=== PATIENT | female | born 1930 | race Caucasian/White ===

== ENCOUNTER 2019-03-04 17:34 | Inpatient (IN) | payer MEDICARE ==
[~2019-03-04] VITALS: Ht 167.6 cm; Wt 63.6 kg
--- NOTE | 2019-03-04 17:35 | NUR ---
level 1 stroke and upon my arrival pt was in hallway in front of room 3. Pt is alert, very anxious, speech is slow but fluent. Daughter is at bedside and provided details. Pt was known to be well at 3PM as she spoke to her daughter
--- NOTE | 2019-03-04 17:40 | NUR ---
TO CT WITH PATIENT AT THIS TIME, STROKE RN LASHELL AT BEDSIDE SPEAKING WITH FAMILY, MILLIE CALVILLO AT BEDSIDE.
--- NOTE | 2019-03-04 17:50 | NUR ---
PATIENT BACK FROM CT AT THIS TIME. Addendum: 03/04/19 at 1750 by MELISSA CANDICE LOBO AT BEDSIDE.
[2019-03-04 17:54] LABS: BASOPHILS # (AUTO) 0.1 X10'3 (0-0.2); BASOPHILS % (AUTO) 0.7 % (0-1); EOSINOPHILS # (AUTO) 0.2 X10'3 (0-0.9); EOSINOPHILS % (AUTO) 1.7 % (0-6); HEMATOCRIT 42.1 % (35.0-45.0); LYMPHOCYTES # (AUTO) 1.4 X10'3 (1.1-4.8); LYMPHOCYTES % (AUTO) 14.7 % (21-51); MEAN CORPUSCULAR HEMOGLOBIN 30.7 PG (27.0-31.0); MEAN CORPUSCULAR HGB CONC 33.4 g/dL (33.0-36.5); MEAN CORPUSCULAR VOLUME 91.9 FL (78-98); MEAN PLATELET VOLUME 8.7 FL (7.4-10.4); MONOCYTES # (AUTO) 0.9 X10'3 (0-0.9); MONOCYTES % (AUTO) 9.3 % (2-12); NEUTROPHILS # (AUTO) 7.1 X10'3 (1.8-7.7); NEUTROPHILS % (AUTO) 73.6 % (42-75); PLATELET COUNT 200 X10'3 (140-440); RED BLOOD COUNT 4.58 X10'6 (4.20-5.60); RED CELL DISTRIBUTION WIDTH 14.5 % (11.5-14.5); WHITE BLOOD COUNT 9.6 X10'3 (4.5-11.0)
--- NOTE | 2019-03-04 17:56 | NUR ---
TELE NEURO HAS BEEN INITIATED
[2019-03-04 18:05] LABS: PARTIAL THROMBOPLASTIN TIME 27 SECONDS (22-32)
[2019-03-04 18:08] LABS: ALANINE AMINOTRANSFERASE 23 U/L (12-78); ALBUMIN 3.5 G/DL (3.4-5.0); ALBUMIN/GLOBULIN RATIO 1.1 (1.1-1.5); ALKALINE PHOSPHATASE 76 IU/L (46-116); ANION GAP 11 (8-16); ASPARTATE AMINO TRANSFERASE 16 U/L (10-37); BILIRUBIN,TOTAL 0.3 MG/DL (0.1-1.0); BLOOD UREA NITROGEN 16 MG/DL (7-18); CALCIUM 9.4 MG/DL (8.5-10.1); CHLORIDE 104 MMOL/L (99-107); CREATININE 0.94 MG/DL (0.40-0.90); GLUCOSE 109 MG/DL (70-104); POTASSIUM 4.3 MMOL/L (3.5-5.1); SODIUM 137 MMOL/L (135-145); TOTAL CARBON DIOXIDE 22.2 MMOL/L (24-32); TOTAL PROTEIN 6.6 G/DL (6.4-8.2); eGFR 56 ML/MIN
[2019-03-04 18:10] LABS: TROPONIN I < 0.04 NG/ML (0.0-0.05)
[2019-03-04] MEDS ORDERED: iohexol 350MG/ML 100ml bottle IV ONE (18:45)
[2019-03-04] MEDS ORDERED: aspirin 81mg tab.chew PO ONE (19:45)
[2019-03-04] MEDS ORDERED: LEVO88TA2 PO (20:10)
--- NOTE | 2019-03-04 20:17 | NUR ---
Daughter Faith Potterjanette phone #:[phone]
--- NOTE | 2019-03-04 20:27 | NUR ---
continued note. Pt spoke again to her daughter by phone at 4pm and daughter noted "something wrong." Pt's daughter proceeded to pts house where she found her speaking "gibberish" and having difficulty with balance. Daughter then brought pt to the ED Currently she continues to have bouts of aphasia, at times has difficulty following direction. Pt delined TPA. POC discussed with pt and pts daughter Faith.
--- NOTE | 2019-03-04 20:30 | NUR ---
PT EXHIBITING SOME EXPRESSIVE AND RECEPTIVE DIFFICULTIES AT THIS TIME. WHEN ASKED TO COVER LEFT EYE WITH LEFT HAND PT JUST LOOKED AT BOTH HANDS FOR SEVERAL SECONDS AND WAS UNABLE TO DETERMINE LEFT FROM RIGHT OR WHAT SHE WAS BEING REQUESTED TO DO. SHE REMAINS SLOW WITH SYMPTOMS THAT COME AND GO.
--- NOTE | 2019-03-04 20:55 | NUR ---
UNABLE TO COMPLETE STROKE CHECKLIST OF Q15 MIN VITALS DUE TO NO VITALS BEING INPUTED PRIOR TO PT BEING PLACED INTO BED 3.
--- NOTE | 2019-03-04 20:57 | NUR ---
Report to bellows charger assemblerYudith and bedside rnWesly.
--- NOTE | 2019-03-04 20:59 | NUR ---
PER STROKE NURSE, REPORT GIVEN TO NEURO UNIT LINE SERVICE ATTENDANT AND BEDSIDE RN WELL.
[2019-03-04] MEDS ORDERED: magnesium hydroxide 30ml (MOM) UD suspension PO PRN (22:30)
[2019-03-04] MEDS ORDERED: acetaminophen 325mg tablet PO PRN (22:30)
[2019-03-04] MEDS ORDERED: ondansetron/PF 4mg/2ml inj IV PRN (22:30)
[2019-03-04] MEDS ORDERED: mag hydrox/Alum hydrox/simeth 30ml oral suspension PO PRN (22:30)
[2019-03-04] MEDS ORDERED: ESTR1PAT95 TD (22:50)
[2019-03-04 23:15] VITALS: BP 121/62
[2019-03-05] VITALS (8 sets, daily range): BP systolic 104–170; BP diastolic 37–75
[2019-03-05 05:49] LABS: CLARITY,URINE SLIGHTLY CLOUDY (Clear); COLOR,URINE YELLOW (Yellow); GLUCOSE, URINE NEGATIVE (Neg); KETONES,URINE TRACE mg/dl (Neg); LEUKOCYTE ESTERASE ,URINE NEGATIVE (Neg); NITRITES, URINE NEGATIVE (Neg); OCCULT BLOOD,URINE NEGATIVE (Neg); PH,URINE 7.5 (4.8-8.0); PROTEIN,URINE NEGATIVE (Neg); UROBILINOGEN,URINE 0.2 E.U/dL (0.2-1.0)
[2019-03-05 05:56] LABS: UA COLLECTION TYPE STRAIGHT CATH
[2019-03-05 05:57] LABS: BACTERIA,URINE 1+ /HPF (Neg); RBC,URINE 0-2 /HPF (0-2); SQUAMOUS EPITHELIAL CELL,UR MANY /LPF (FEW); WBC,URINE 0-4 /HPF (0-4)
--- NOTE | 2019-03-05 06:15 | NUR ---
Patient in room ORTHO 4009. I have received report from BERTHA MUELLER and had the opportunity to ask questions and assume patient care.
[2019-03-05 06:16] LABS: CHOL/HDL RATIO 2.4 (0.00-4.99); CHOLESTEROL 147 MG/DL (0-200); HDL CHOLESTEROL 61 MG/DL (35-60); LDL CHOLESTEROL 80 MG/DL (50-100); TRIGLYCERIDES 44 MG/DL (20-135)
--- NOTE | 2019-03-05 06:30 | NUR ---
Problems reprioritized. Patient report given, questions answered & plan of care reviewed with ERVIN SHAFER.
[2019-03-05] MEDS: heparin, porcine 5000 units/ml vial SQ SCH ×2 (07:44→20:00)
[2019-03-05] MEDS: aspirin 325mg tablet PO SCH (07:44)
[2019-03-05] MEDS ORDERED: CefTRIAXone/D5W-Rocephin 1gm 50 ML IV SCH (08:00)
[2019-03-05] MEDS: lactobacillus rhamnosus 10,000 MMU CELLS/CAPSULE PO SCH ×2 (10:24→20:00)
--- NOTE | 2019-03-05 17:12 | NUR ---
HOLLIS 4518 RE: SNEHAL [id number] MRA IS NORMAL. PATIENT IS BEEN SHAKING AND VERY WARM BUT NO TEMP.
--- NOTE | 2019-03-05 18:00 | NUR ---
Problems reprioritized. Patient report given, questions answered & plan of care reviewed with GEORGINA MUELLER.
--- NOTE | 2019-03-05 18:19 | NUR ---
Student documentation: I have reviewed and agree with all interventions, assessments performed and documented by RICHIE HOLT.
[2019-03-05] MEDS ORDERED: vancomycin/NS 1 GM ADD-VANTAGE 250 ML IV ONE (18:20)
--- NOTE | 2019-03-05 18:20 | NUR ---
Student Medication Administration: For this medication-pass time frame, all medication were reviewed, dispensed, administered and documented per hospital policy by CHIRAG HOLT.
--- NOTE | 2019-03-05 18:47 | NUR ---
called daughter Faith to inform patient may have lumbar puncture this evening and will need consent. daughter will come to hospital.
[2019-03-05] MEDS ORDERED: acetaminophen 650mg rectal suppository RC PRN (19:45)
--- NOTE | 2019-03-05 19:45 | NUR ---
Dr. Blanton gave me a verbal order to give 2 tylenol suppositories for 103.2 axillary temperature.
[2019-03-05] MEDS ORDERED: acetaminophen 650mg rectal suppository RC ONE (19:50)
[2019-03-05] MEDS ORDERED: vancomycin/NS 1 GM ADD-VANTAGE 250 ML IV SCH (20:00)
--- NOTE | 2019-03-05 20:27 | NUR ---
Dr. Blanton did a lumbar puncture on patient in the Er in bed #16, the pt's daughter gave consent for procedure. He was able to do lumbar puncture with one puncture. Patient tolerated procedure well.
[2019-03-05] MEDS: acyclovir inj 750 MG in normal saline 250ml IV soln 235 ML IV SCH (20:38)
[2019-03-05] MEDS: normal saline 1000ml 1,000 ML IV SCH (20:38)
[2019-03-05 20:39] LABS: CSF SUPERNATANT COLOR COLORLESS
[2019-03-05 20:40] LABS: APPEARANCE,CSF CLEAR; BODY FLUID PH (NON-PLEURAL) 7.5; CSF VOLUME 9 ML; TUBE# COUNTED 3
[2019-03-05 21:00] LABS: TOTAL PROTEIN,CSF 121 MG/DL (30-60)
[2019-03-05 21:08] LABS: CSF RBC 40 /CU MM (0); LYMPHOCYTES,CSF 65 % (40-80); MONOCYTES,CSF 23 % (15-45); NEUTRO,CSF 12 % (0-6)
[2019-03-05 21:10] LABS: CSF WBC CT 380 /CU MM (0-5)
--- NOTE | 2019-03-05 21:16 | NUR ---
notified Dr. Roth of WBC in CSF count. also of patient's continued temperature of 102.3 axillary. req to keep on the tylenol q6 for temperature. no new orders
[2019-03-06 02:26] VITALS: BP 116/71
[2019-03-06] MEDS: acyclovir inj 750 MG in normal saline 250ml IV soln 235 ML IV SCH (03:05)
[2019-03-06 06:00] VITALS: BP 115/67
--- NOTE | 2019-03-06 06:32 | NUR ---
reported to days. noted pt much more alert this am. able to use full sentences.
--- NOTE | 2019-03-06 07:08 | NUR ---
Patient in room ORTHO 4011. I have received report from Ashanti MUELLER and had the opportunity to ask questions and assume patient care.
[2019-03-06 09:19] LABS: BASOPHILS % (AUTO) 0.6 % (0-1); EOSINOPHILS # (AUTO) 0.1 X10'3 (0-0.9); EOSINOPHILS % (AUTO) 1.6 % (0-6); HEMATOCRIT 42.4 % (35.0-45.0); HEMOGLOBIN 14.3 g/dl (12.0-16.0); LYMPHOCYTES # (AUTO) 1.4 X10'3 (1.1-4.8); LYMPHOCYTES % (AUTO) 17.8 % (21-51); MEAN CORPUSCULAR HEMOGLOBIN 31.2 PG (27.0-31.0); MEAN CORPUSCULAR HGB CONC 33.6 g/dL (33.0-36.5); MEAN CORPUSCULAR VOLUME 92.8 FL (78-98); MEAN PLATELET VOLUME 9.4 FL (7.4-10.4); MONOCYTES # (AUTO) 1.3 X10'3 (0-0.9); MONOCYTES % (AUTO) 16.4 % (2-12); NEUTROPHILS % (AUTO) 63.6 % (42-75); PLATELET COUNT 168 X10'3 (140-440); RED BLOOD COUNT 4.56 X10'6 (4.20-5.60); WHITE BLOOD COUNT 7.9 X10'3 (4.5-11.0)
[2019-03-06 09:23] LABS: ALANINE AMINOTRANSFERASE 21 U/L (12-78); ALBUMIN 3.2 G/DL (3.4-5.0); ALKALINE PHOSPHATASE 67 IU/L (46-116); ANION GAP 14 (8-16); ASPARTATE AMINO TRANSFERASE 27 U/L (10-37); BILIRUBIN,TOTAL 0.6 MG/DL (0.1-1.0); BLOOD UREA NITROGEN 13 MG/DL (7-18); CALCIUM 8.9 MG/DL (8.5-10.1); CHLORIDE 106 MMOL/L (99-107); CREATININE 0.93 MG/DL (0.40-0.90); GLUCOSE 80 MG/DL (70-104); POTASSIUM 3.8 MMOL/L (3.5-5.1); SODIUM 140 MMOL/L (135-145); TOTAL CARBON DIOXIDE 20.1 MMOL/L (24-32); TOTAL PROTEIN 6.5 G/DL (6.4-8.2); eGFR 57 ML/MIN
[2019-03-06 10:00] VITALS: BP 114/53
[2019-03-06] MEDS: lactobacillus rhamnosus 10,000 MMU CELLS/CAPSULE PO SCH ×2 (10:10→19:27)
[2019-03-06] MEDS: aspirin 325mg tablet PO SCH (10:10)
[2019-03-06] MEDS: levoTHYROXINE 88mcg tablet PO SCH (10:10)
[2019-03-06] MEDS: heparin, porcine 5000 units/ml vial SQ SCH ×2 (10:11→19:28)
[2019-03-06] MEDS: normal saline 1000ml 1,000 ML IV SCH ×2 (10:58→13:01)
[2019-03-06 11:04] LABS: TOTAL CELLS COUNTED 100
[2019-03-06 11:05] LABS: BURR CELLS 1+; PLATELET ESTIMATE NORMAL
[2019-03-06] MEDS: acetaminophen 325mg tablet PO PRN ×2 (12:58→22:11)
--- NOTE | 2019-03-06 18:18 | NUR ---
Problems reprioritized. Patient report given, questions answered & plan of care reviewed with Kely Conteh Rn.
[2019-03-06 20:00] VITALS: BP 135/73
[2019-03-07] VITALS: BP 121/88
--- NOTE | 2019-03-07 03:56 | NUR ---
reviewed and agree with SRN assessment.
[2019-03-07 05:13] LABS: RPR Non Reactive (Non Reactive)
[2019-03-07] MEDS: normal saline 1000ml 1,000 ML IV SCH (05:20)
[2019-03-07 06:00] VITALS: BP 117/63
--- NOTE | 2019-03-07 06:17 | NUR ---
Problems reprioritized. Patient report given, questions answered & plan of care reviewed with ERVIN Crow.
[2019-03-07 06:27] LABS: BASOPHILS # (AUTO) 0.1 X10'3 (0-0.2); BASOPHILS % (AUTO) 1.1 % (0-1); EOSINOPHILS # (AUTO) 0.4 X10'3 (0-0.9); EOSINOPHILS % (AUTO) 6.4 % (0-6); HEMATOCRIT 37.6 % (35.0-45.0); HEMOGLOBIN 12.9 g/dl (12.0-16.0); LYMPHOCYTES # (AUTO) 1.3 X10'3 (1.1-4.8); LYMPHOCYTES % (AUTO) 20.8 % (21-51); MEAN CORPUSCULAR HEMOGLOBIN 31.5 PG (27.0-31.0); MEAN CORPUSCULAR HGB CONC 34.4 g/dL (33.0-36.5); MEAN CORPUSCULAR VOLUME 91.7 FL (78-98); MEAN PLATELET VOLUME 8.8 FL (7.4-10.4); MONOCYTES # (AUTO) 0.7 X10'3 (0-0.9); MONOCYTES % (AUTO) 11.9 % (2-12); NEUTROPHILS # (AUTO) 3.6 X10'3 (1.8-7.7); NEUTROPHILS % (AUTO) 59.8 % (42-75); PLATELET COUNT 170 X10'3 (140-440); RED BLOOD COUNT 4.09 X10'6 (4.20-5.60); RED CELL DISTRIBUTION WIDTH 14.4 % (11.5-14.5); WHITE BLOOD COUNT 6.1 X10'3 (4.5-11.0)
[2019-03-07 06:31] LABS: ALANINE AMINOTRANSFERASE 20 U/L (12-78); ALBUMIN 2.6 G/DL (3.4-5.0); ALBUMIN/GLOBULIN RATIO 0.9 (1.1-1.5); ALKALINE PHOSPHATASE 51 IU/L (46-116); ANION GAP 8 (8-16); ASPARTATE AMINO TRANSFERASE 17 U/L (10-37); BILIRUBIN,TOTAL 0.4 MG/DL (0.1-1.0); BLOOD UREA NITROGEN 12 MG/DL (7-18); BUN/CREATININE RATIO 15.2 (6.6-38.0); CALCIUM 8.3 MG/DL (8.5-10.1); CHLORIDE 107 MMOL/L (99-107); CREATININE 0.79 MG/DL (0.40-0.90); GLUCOSE 96 MG/DL (70-104); POTASSIUM 3.7 MMOL/L (3.5-5.1); SODIUM 140 MMOL/L (135-145); TOTAL CARBON DIOXIDE 24.9 MMOL/L (24-32); TOTAL PROTEIN 5.6 G/DL (6.4-8.2); eGFR 69 ML/MIN
--- NOTE | 2019-03-07 06:51 | NUR ---
Patient in room ORTHO 4011. I have received report from Kely MUELLER and had the opportunity to ask questions and assume patient care.
[2019-03-07] MEDS: aspirin 325mg tablet PO SCH (08:17)
[2019-03-07] MEDS: levoTHYROXINE 88mcg tablet PO SCH (08:17)
[2019-03-07] MEDS: lactobacillus rhamnosus 10,000 MMU CELLS/CAPSULE PO SCH ×2 (08:17→20:20)
[2019-03-07] MEDS: acetaminophen 325mg tablet PO PRN ×2 (08:17→22:23)
[2019-03-07] MEDS: heparin, porcine 5000 units/ml vial SQ SCH (08:19)
[2019-03-07 10:00] VITALS: BP 114/50
--- NOTE | 2019-03-07 10:55 | NUR ---
Paged case management to come talk to patients family about discharge options
--- NOTE | 2019-03-07 11:42 | NUR ---
Problems reprioritized. Patient report given, questions answered & plan of care reviewed with Monet MUELLER.
[2019-03-07 18:00] VITALS: BP 136/64
--- NOTE | 2019-03-07 19:00 | NUR ---
Patient in room ORTHO 4011. I have received report from Tristin MUELLER and had the opportunity to ask questions and assume patient care.
--- NOTE | 2019-03-07 19:28 | NUR ---
Patient's daughter is expressing concern regarding her mom's discharge to home at this time. Per the daughter she is going to be responsible for the patient and she herself had recent back surgery and has a 10# weight limit for lifting and also has restrictions on rotation. I informed her that I would inform the day charge nurse about the issues and they would page the DCP Saturday regarding this and see what options they had. Sometimes rehab will accept patients that are able to walk good with minimal assistance with certain circumstances at home with caregivers, living situations. Also gave this information to the patient's son at bedside.
[2019-03-07] MEDS: apixaban 2.5mg tablet PO SCH (20:19)
[2019-03-07 22:00] VITALS: BP 128/66
[2019-03-08 06:00] VITALS: BP 120/60
--- NOTE | 2019-03-08 06:10 | NUR ---
Patient in room ORTHO 4011. I have received report from and had the opportunity to ask questions and assume patient care ERVIN Yap.
[2019-03-08 08:00] VITALS: BP 121/57
[2019-03-08] MEDS: lactobacillus rhamnosus 10,000 MMU CELLS/CAPSULE PO SCH (08:39)
[2019-03-08] MEDS: levoTHYROXINE 88mcg tablet PO SCH (08:39)
[2019-03-08] MEDS: apixaban 2.5mg tablet PO SCH (08:39)
[2019-03-08 09:20] LABS: ALANINE AMINOTRANSFERASE 22 U/L (12-78); ALBUMIN 2.7 G/DL (3.4-5.0); ALBUMIN/GLOBULIN RATIO 0.8 (1.1-1.5); ALKALINE PHOSPHATASE 51 IU/L (46-116); ANION GAP 5 (8-16); ASPARTATE AMINO TRANSFERASE 17 U/L (10-37); BILIRUBIN,TOTAL 0.4 MG/DL (0.1-1.0); BLOOD UREA NITROGEN 12 MG/DL (7-18); BUN/CREATININE RATIO 15.4 (6.6-38.0); CALCIUM 8.5 MG/DL (8.5-10.1); CHLORIDE 111 MMOL/L (99-107); CREATININE 0.78 MG/DL (0.40-0.90); GLUCOSE 90 MG/DL (70-104); POTASSIUM 4.3 MMOL/L (3.5-5.1); SODIUM 144 MMOL/L (135-145); TOTAL CARBON DIOXIDE 27.8 MMOL/L (24-32); TOTAL PROTEIN 5.9 G/DL (6.4-8.2); eGFR 70 ML/MIN
[2019-03-08] MEDS ORDERED: APIX2.5T PO (11:38)
--- NOTE | 2019-03-08 12:16 | NUR ---
DISCHARGE: Pt A/O. VSS, RR even unlabored. No s/s stroke noted. Viral menengitis, ASA for intermittent EISENBERG. Eliquis Rx called into pt pharmacy/[facility]. All necessary DC documents signed, copies released to pt. pt/and family member will make appt to follow up w/. Pt escorted JOSE ANTONIO by [facility] staff. Pt ambulated using walder for balance. pt will have family for supervision, SBA as needed. pt transferred safely into personal vehicle home. Pt thanked [facility] staff for her care.
[2019-03-08] MEDS ORDERED: VANCOMYCIN LEVEL IV ONE (19:30)
[2019-03-09 13:29] LABS: CSF WEST NILE VIRUS, IGG Negative (Negative); CSF WEST NILE VIRUS, IGM Negative (Negative)
[2019-03-10 11:11] LABS: HSV 1 PCR Negative (Negative); HSV 2 PCR Negative (Negative)
[2019-03-10 13:40] LABS: LYME IGG P23 AB Absent (.); LYME IGG P28 AB Absent (.); LYME IGG P30 AB Absent (.); LYME IGG P41 AB Absent (.); LYME IGG P45 AB Absent (.); LYME IGG P58 AB Absent (.); LYME IGG P66 AB Absent (.); LYME IGG P93 AB Absent (.); LYME IGG WB INTERP Negative (.); LYME IGM P23 AB Absent (.); LYME IGM P39 AB Absent (.); LYME IGM P41 AB Absent (.); LYME IGM WB INTERP Negative (.)
== END 2019-03-08 12:03 | disposition home health service (06) | DRG 75 ==
LOC: ER 17:35 → ED HOLD 23:03 → CMPBEDREQ 23:59 → ORTHO 4S 03-05 00:01
PROVIDERS: ADMIT Internal Medicine; ATTEND Family Medicine
PROC: B3251ZZ Computerized Tomography (CT Scan) of Bilateral Common Carotid Arteries using Low Osmolar Contrast (ICD-10-PCS; 2019-03-04)
PROC: B32G1ZZ Computerized Tomography (CT Scan) of Bilateral Vertebral Arteries using Low Osmolar Contrast (ICD-10-PCS; 2019-03-04)
PROC: B3281ZZ Computerized Tomography (CT Scan) of Bilateral Internal Carotid Arteries using Low Osmolar Contrast (ICD-10-PCS; 2019-03-04)
PROC: 009U3ZZ Drainage of Spinal Canal, Percutaneous Approach (ICD-10-PCS; principal; 2019-03-05)
DX: A87.9 Viral meningitis, unspecified (principal); G93.41 Metabolic encephalopathy; I48.0 Paroxysmal atrial fibrillation; E03.9 Hypothyroidism, unspecified; Z60.2 Problems related to living alone; Z66 Do not resuscitate; Z79.890 Hormone replacement therapy; Z87.891 Personal history of nicotine dependence; Z90.710 Acquired absence of both cervix and uterus
CPT/HCPCS: 36415; 70450; 70496; 70498; 70544; 70551; 71045; 72131; 80053; 80061; 81001; 82948; 83605; 83986; 84145; 84157; 84439; 84443; 84484; 85025; 85610; 85730; 86592; 86617; 86788; 86789; 87015; 87040; 87070; 87075; 87081; 87102; 87529; 89051; 92508; 92616; 93005; 93306; 97110; 97116; 97162; 97530; 99291; G0378; J0133; J0696; J1644; J3370; J7030; J7050; Q9967

== ENCOUNTER 2019-07-20 16:26 | Emergency (ER) | payer MEDICARE ==
[~2019-07-20] VITALS: Ht 170.2 cm; Wt 59.2 kg
[~2019-07-20 16:26] MED LIST: APIX2.5T PO; ESTR1PAT95 TD; LEVO88TA2 PO
--- NOTE | 2019-07-20 18:10 | NUR ---
To x-ray via w/c for imaging. Pt assisted to change into a gown and given warm blankets prior to x-ray.
[2019-07-20 18:44] LABS: BASOPHILS # (AUTO) 0.1 X10'3 (0-0.2); BASOPHILS % (AUTO) 0.7 % (0-1); EOSINOPHILS # (AUTO) 0.2 X10'3 (0-0.9); EOSINOPHILS % (AUTO) 2.4 % (0-6); HEMATOCRIT 45.4 % (35.0-45.0); HEMOGLOBIN 15.1 g/dl (12.0-16.0); LYMPHOCYTES % (AUTO) 25.4 % (21-51); MEAN CORPUSCULAR HEMOGLOBIN 30.6 PG (27.0-31.0); MEAN CORPUSCULAR HGB CONC 33.2 g/dL (33.0-36.5); MEAN CORPUSCULAR VOLUME 92.2 FL (78-98); MEAN PLATELET VOLUME 8.9 FL (7.4-10.4); MONOCYTES # (AUTO) 0.7 X10'3 (0-0.9); MONOCYTES % (AUTO) 9.2 % (2-12); NEUTROPHILS % (AUTO) 62.3 % (42-75); PLATELET COUNT 239 X10'3 (140-440); RED BLOOD COUNT 4.93 X10'6 (4.20-5.60); RED CELL DISTRIBUTION WIDTH 13.9 % (11.5-14.5)
[2019-07-20 18:58] LABS: ALANINE AMINOTRANSFERASE 24 U/L (12-78); ALBUMIN/GLOBULIN RATIO 1.3 (1.1-1.5); ALKALINE PHOSPHATASE 67 IU/L (46-116); ANION GAP 8 (8-16); ASPARTATE AMINO TRANSFERASE 21 U/L (10-37); BILIRUBIN,TOTAL 0.5 MG/DL (0.1-1.0); BLOOD UREA NITROGEN 16 MG/DL (7-18); CALCIUM 9.4 MG/DL (8.5-10.1); CHLORIDE 107 MMOL/L (99-107); CREATININE 0.89 MG/DL (0.40-0.90); GLUCOSE 99 MG/DL (70-104); POTASSIUM 4.2 MMOL/L (3.5-5.1); SODIUM 143 MMOL/L (135-145); TOTAL CARBON DIOXIDE 27.8 MMOL/L (24-32); TOTAL PROTEIN 7.2 G/DL (6.4-8.2); eGFR 60 ML/MIN
[2019-07-20 19:20] LABS: CLARITY,URINE CLEAR (Clear); COLOR,URINE YELLOW (Yellow); GLUCOSE, URINE NEGATIVE (Neg); KETONES,URINE NEGATIVE (Neg); LEUKOCYTE ESTERASE ,URINE NEGATIVE (Neg); NITRITES, URINE NEGATIVE (Neg); OCCULT BLOOD,URINE NEGATIVE (Neg); PROTEIN,URINE NEGATIVE (Neg); UA COLLECTION TYPE CLN CATCH MIDSTREAM; UROBILINOGEN,URINE 0.2 E.U/dL (0.2-1.0)
[2019-07-20 20:54] VITALS: BP 145/67
== END 2019-07-20 20:37 | disposition home or self-care (01) ==
LOC: ER 16:27
DX: S60.221A Contusion of right hand, initial encounter (principal); M25.551 Pain in right hip; M25.511 Pain in right shoulder; Z79.899 Other long term (current) drug therapy; W18.30XA Fall on same level, unspecified, initial encounter; Y93.89 Activity, other specified; Y92.512 Supermarket, store or market as the place of occurrence of the external cause; Y99.9 Unspecified external cause status
CPT/HCPCS: 36415; 73030; 73120; 73502; 80053; 81003; 84443; 85025; 93005; 99285

== ENCOUNTER 2021-02-16 08:27 | Emergency (ER) | payer MEDICARE ==
[~2021-02-16] VITALS: Ht 167.6 cm; Wt 56.8 kg
[~2021-02-16 08:27] MED LIST changes: +LIDOcaine 1% W/epiNEPHrine 1:100,000 20ml vial ONE
[2021-02-16 08:41] VITALS: BP 145/78
[2021-02-16] MEDS ORDERED: CEPH250T PO (10:05)
== END 2021-02-16 10:30 | disposition home or self-care (01) ==
LOC: ER 08:27
DX: S61.411A Laceration without foreign body of right hand, initial encounter (principal); Z79.2 Long term (current) use of antibiotics; Z79.899 Other long term (current) drug therapy; W19.XXXA Unspecified fall, initial encounter; Y93.01 Activity, walking, marching and hiking; Y92.89 Other specified places as the place of occurrence of the external cause; Y99.8 Other external cause status
CPT/HCPCS: 12002; 99283